=== PATIENT | female | born 2000 | race Caucasian/White ===

== ENCOUNTER 2021-07-28 13:32 | Emergency (ER) | payer SELFPAY ==
[2021-07-28] MEDS ORDERED: Ondansetron ODT 4 MG TAB ONE (14:31)
== END 2021-07-28 16:16 | disposition home or self-care (01) ==
LOC: CSHERS 13:32
DX: T51.91XA Toxic effect of unspecified alcohol, accidental (unintentional), initial encounter (principal); R51.9 Headache, unspecified; R11.0 Nausea
CPT/HCPCS: 99284; Q0162